=== PATIENT | female | born 1985 | race Caucasian/White ===

== ENCOUNTER 2016-09-21 11:32 | Emergency (ER) | payer OTHER ==
--- NOTE | 2016-09-28 08:15 | ER ---
ADMIT: 09/21/2016 RM/LOC: ER [facility] MR#: [id number] [address] [facility] [address] [place], [place] [id number] DEVON SAINZ [address] [place] [address] Emergency Room Report SEX: F AGE: 31 : 1985 DATE: 09/21/2016 HISTORY OF PRESENT ILLNESS: Devon is 31 years of age had a positive test at home. She has been on progesterone and had some bright vaginal bleed today. No pain. No cramping. She says she had a tubal reversal. Her last menstrual period was 08/09/2016. 4, para 2. She is taking vitamins and has no allergies. PHYSICAL EXAMINATION: VITAL SIGNS: Blood pressure 112/71 with a pulse of 70, respirations 16, temp 97.2, and O2 sats 100%. GENERAL: Well-nourished, well-developed, alert and oriented female in no acute distress, although she does look a little bit anxious, but it is probably unexpected. The physical examination was within normal limits. LABORATORY DATA: A positive Rh factor. Urine totally clean. Wet mount negative for clue cells and beta human chorionic gonadotropin is 922. Ultrasound does show an early gestational sac of 5 weeks approximately intrauterine . No ectopic. The patient notified. DIAGNOSIS: Early intrauterine. Instructions given. Follow up with Dr. Cornelius. Her pelvic examination did not show any discharge except for scanty vaginal bleeding, and cervical os closed. JAYJAY Alatorre / Jose Madrigal MD / modl JOB #: [id number] CC: Jose Madrigal MD, Attending Physician Nany Cornelius MD
== END 2016-09-21 16:25 | disposition home or self-care (01) ==
LOC: ER 11:32
DX: O20.9 Hemorrhage in early pregnancy, unspecified (principal); Z3A.01 Less than 8 weeks gestation of pregnancy; Z79.899 Other long term (current) drug therapy